=== PATIENT | female | born 2000 | race American Indian/Alaskan Native ===

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

== ENCOUNTER → 2022-12-28 15:29 | Outpatient (CLI) | payer OTHER, MEDICAID, SELFPAY | PROVIDERS: Visit Provider Physician Assistant | DX: N39.0 Urinary tract infection, site not specified (principal) | CPT/HCPCS: 81002; 87086 ==